=== PATIENT | male | born 1965 | race Two or more races ===

== ENCOUNTER 2020-05-03 11:47 | Emergency (ER) | payer SELFPAY ==
[~2020-05-03] VITALS: Ht 167.6 cm; Wt 78.7 kg
[2020-05-03] MEDS ORDERED: PANTOPRAZOLE 40 MG IV IVPush ONE (12:30)
[2020-05-03] MEDS ORDERED: ONDANSETRON 2MG/ML, 2ML ONE (12:30)
[2020-05-03] MEDS ORDERED: ONDANSETRON 2MG/ML, 2ML IVPush ONE (12:30)
[2020-05-03] MEDS ORDERED: SODIUM CHLORIDE FLUSH 10ML SYR IVF ONE (12:30)
[2020-05-03] MEDS ORDERED: PLEASE ENTER ALLERGIES MC SCH (12:30)
[2020-05-03] MEDS ORDERED: SODIUM CHLORIDE 0.9% 1,000ML IVBOLUS ONE (12:30)
[2020-05-03] MEDS ORDERED: FAMOTIDINE 20 MG/2 ML IVPush ONE (12:30)
[2020-05-03] MEDS ORDERED: PANTOPRAZOLE 40 MG IV ONE (12:31)
[2020-05-03] MEDS ORDERED: FAMOTIDINE 20 MG/2 ML ONE (12:31)
--- NOTE | 2020-05-03 12:36 | NUR ---
PT PRESENTS TO ED WITH C/O EPIGASTRIC PAIN RADIATING INTO STERNUM, WORSENED WITH VOMITING. PT REPORTS 5 DAYS OF EMESIS, ADMITS TO SEEING BLOOD IN VOMIT. PT REPORTS HE DRINKS AN INNUMERABLE AMOUNT OF BEERS DAILY, LAST DRINK THIS AM. SPEECH SLIGHTLY SLURRED, PT DROWSY. PT IS ORIENTED X 4, FOLLOWS COMMANDS. EKG TAKEN ON ARRIVAL IN TRIAGE, ALL MONITORS IN PLACE. CALL LIGHT IN REACH. WARM BLANKET PROVIDED. PT UPDATED WITH POC TO HAVE LABS, IVF AND FLUIDS.
[2020-05-03 12:53] VITALS: BP 127/80
--- NOTE | 2020-05-03 12:59 | NUR ---
PIV PLACED BY EDTA, PT MEDICATED PER EMAR, TOLERATING WELL. ALL MONITORS IN PLACE. 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 PT IS DROWSY, AWAKENS TO VOICE. RESPS EVEN AND UNLABORED. NADN. AWAITING LAB RESULTS AND DISPO.
[2020-05-03 13:00] LABS: BASOPHILS # (AUTO) 0.02 x10^3/uL (0-0.1); BASOPHILS % (AUTO) 0 % (0-1); EOSINOPHILS % (AUTO) 0 % (1-7); LYMPHOCYTES # (AUTO) 1.87 x10^3/uL (1-3.4); LYMPHOCYTES % (AUTO) 23 % (22-44); MD NO; MEAN CORPUSCULAR HEMOGLOBIN 31.2 pg (27.5-34.5); MEAN CORPUSCULAR HGB CONC 33.1 g/dL (33.2-36.2); MEAN CORPUSCULAR VOLUME 94.2 fL (81-97); MEAN PLATELET VOLUME 7.7 fL (7.4-10.4); MONOCYTES # (AUTO) 0.41 x10^3/uL (0.2-0.8); MONOCYTES % (AUTO) 5 % (2-9); NEUTROPHILS # (AUTO) 5.98 x10^3/uL (1.8-6.8); NEUTROPHILS % (AUTO) 72 % (42-75); PLATELET COUNT 275 x10^3/uL (130-400); RED BLOOD COUNT 5.15 x10^6/uL (4.38-5.82); RED CELL DISTRIBUTION WIDTH 13.9 % (9.4-14.8)
[2020-05-03 13:11] LABS: ALANINE AMINOTRANSFERASE 45 U/L (12-78); ALBUMIN 3.3 g/dL (3.4-5.0); ANION GAP 10 mmol/L (5-15); CALCIUM 7.7 mg/dL (8.5-10.1); CHLORIDE 103 mmol/L (98-107); CREATININE 0.85 mg/dL (0.7-1.3)
[2020-05-03 13:13] LABS: ALKALINE PHOSPHATASE 78 U/L (45-117); BILIRUBIN,TOTAL 0.6 mg/dL (0.2-1.0)
[2020-05-03 13:18] LABS: INTERNATIONAL NORMALIZED RATIO 1.05 (0.93-1.1); PROTHROMBIN TIME 10.8 Seconds (9.6-11.5)
--- NOTE | 2020-05-03 13:59 | NUR ---
PT IS A&O, RESPS EVEN AND UNLABORED, NAUSEA RESOLVED. PT HAD NO EMESIS DURING ED STAY. PT IS NSR ON ACUTE CARE ASSISTANT, NO ECTOPY. DC ORDER RECEIVED, PT STATES HE ARRIVED TO ED IN [place] AND WILL GO HOME IN [place]. PT IS A&O, SPEECH CLEAR, RESPS EVEN AND UNLABORED, AMBULATORY TO DC DESK WITH STEADY GAIT. PT GIVEN DC INSTRUCTIONS, SIENNAN AT DC.
== END 2020-05-03 14:02 | disposition home or self-care (01) ==
LOC: EDBD 11:47 → ED 13:40
DX: K29.20 Alcoholic gastritis without bleeding (principal); F10.229 Alcohol dependence with intoxication, unspecified; K92.0 Hematemesis; R07.2 Precordial pain; Y90.0 Blood alcohol level of less than 20 mg/100 ml
CPT/HCPCS: 36415; 80053; 83690; 85025; 85610; 85730; 93005; 96361; 96374; 96375; 99284; C9113; J2405; J3490; J7030